=== PATIENT | female | born 1995 | race African-American/Black ===

== ENCOUNTER 2016-12-18 19:26 | Emergency (ER) | payer OTHER ==
[2016-12-18 22:45] LABS: URINE SOURCE CLEAN CATCH
[2016-12-18 22:47] LABS: URINE APPEARANCE CLEAR; URINE BILIRUBIN NEG (NEG); URINE BLOOD 3+ (NEG); URINE COLOR ORANGE; URINE GLUCOSE NEG (NEG); URINE KETONE 1+ (NEG); URINE LEUKOCYTE ESTERASE TRACE (NEG); URINE NITRATE NEG (NEG); URINE PH 6.5 (5-8); URINE PROTEIN 1+ (NEG)
[2016-12-18 22:50] LABS: CULTURE INDICATED? YES; URBCS1 AUWI 50-100 /[HPF] (0-2); URINE BACTERIA AUWI 1+ (NEGATIVE); URINE SQUAMOUS EPITHELIAL CELL OCC /[HPF]
[2016-12-21 08:19] LABS: CHLAMYDIA TRACH Not Detected (Not Detected); N GONOR Not Detected (Not Detected)
== END 2016-12-19 00:21 | disposition home or self-care (01) ==
LOC: CFTX 19:26 → CED 19:26 → CFTX 22:34
PROVIDERS: Nurse Practitioner
DX: N92.0 Excessive and frequent menstruation with regular cycle (principal); F17.200 Nicotine dependence, unspecified, uncomplicated
CPT/HCPCS: 81003; 84702; 87086; 87491; 87591; 87808; 87905; 99283